=== PATIENT | male | born 1965 | race Caucasian/White ===

== ENCOUNTER 2018-01-09 13:05 | Emergency (ER) | payer OTHER ==
--- NOTE | 2018-01-09 13:14 | EDPHY ---
H & P Stated Complaint: Right flank pain Time Seen by Provider: 01/09/18 13:14 HPI/ROS: CHIEF COMPLAINT: Right flank pain HISTORY OF PRESENT ILLNESS: The patient presents the emergency department after he developed acute right flank pain earlier today. The patient does have a prior history of kidney stone in the symptoms are reminiscent of that episode. That kidney stone passed spontaneously after 3 days. The patient denies significant past medical history. He denies any gross hematuria, fever, dysuria or other acute medical complaints. He describes a colicky pain which is moderate in nature. REVIEW OF SYSTEMS: A comprehensive 10 point review of systems is otherwise negative aside from elements mentioned in the history of present illness. Source: Patient Exam Limitations: No limitations - Personal History Current Tetanus Diphtheria and Acellular Pertussis (TDAP): Yes - Medical/Surgical History Hx Asthma: No Hx Chronic Respiratory Disease: No Hx Diabetes: No Hx Cardiac Disease: No Hx Renal Disease: No Hx Cirrhosis: No Hx Alcoholism: No Hx HIV/AIDS: No Hx Splenectomy or Spleen Trauma: No Other PMH: Kidney stone, allergies, L Elbow Fx with repair, heart murmur - Social History Smoking Status: Never smoked - Physical Exam Exam: General Appearance: Alert, mild discomfort Eyes: Pupils equal and round no pallor or injection ENT, Mouth: Mucous membranes moist Respiratory: There are no retractions, lungs are clear to auscultation Cardiovascular: Regular rate and rhythm Gastrointestinal: Abdomen is soft and nontender, no masses, bowel sounds normal Back: Right CVA tenderness to palpation Neurological: 5/5 strength noted all 4 extremities Skin: Warm and dry, no rashes Musculoskeletal: Neck is supple nontender Extremities: Brisk pulses all 4 extremities Constitutional: Initial Vital Signs Temperature (C) 36.8 C 01/09/18 13:07 Heart Rate 81 01/09/18 13:07 Respiratory Rate 18 01/09/18 13:07 Blood Pressure 151/101 H 01/09/18 13:07 O2 Sat (%) 94 01/09/18 13:07 O2 Delivery Mode Room Air Allergies/Adverse Reactions: No Known Allergies Allergy (Unverified 02/08/16 18:45) Home Medications: Medication Instructions Recorded NK [No Known Home Meds] 01/09/18 Medical Decision Making ED Course/Re-evaluation: The patient presents to the ED with colicky right flank pain. The patient reports it feels like a mild episode of his prior ureterolithiasis. Patient had an IV established. He received Toradol. Urinalysis demonstrated no evidence of hematuria. The patient was taken for CT scan of the abdomen pelvis does demonstrate nephrolithiasis without ureterolithiasis. The patient does have mild constipation. No additional abnormalities are noted. I reexamined the patient at 2:40 p.m. He is now pain-free. It is certainly possible he passed a small stone which was not radiographically apparent. None the less the patient would like to be discharged. He will take Advil for pain. He is not interested narcotic medications. Differential Diagnosis: Differential diagnosis considered includes ureterolithiasis, pyelonephritis, myofascial strain, abdominal aortic aneurysm - Data Points Laboratory Results: Laboratory Results 01/09/18 13:17 01/09/18 01/09/18 01/09/18 13:26 13:25 13:17 WBC 7.51 10^3/uL 10^3/uL (3.80-9.50) RBC 5.33 10^6/uL 10^6/uL (4.40-6.38) Hgb 17.2 g/dL g/dL (13.7-17.5) POC Hgb 17.7 gm/dL H gm/dL (13.7-17.5) Hct 50.3 % % (40.0-51.0) POC Hct 52 % H % (40-51) MCV 94.4 fL fL (81.5-99.8) MCH 32.3 pg pg (27.9-34.1) MCHC 34.2 g/dL g/dL (32.4-36.7) RDW 12.1 % % (11.5-15.2) Plt Count 238 10^3/uL 10^3/uL (150-400) MPV 11.3 fL fL (8.7-11.7) Neut % (Auto) 52.2 % % (39.3-74.2) Lymph % (Auto) 39.4 % % (15.0-45.0) [place] % (Auto) 5.2 % % (4.5-13.0) Eos % (Auto) 2.4 % % (0.6-7.6) Baso % (Auto) 0.5 % % (0.3-1.7) Nucleat RBC Rel Count 0.0 % % (0.0-0.2) Absolute Neuts (auto) 3.92 10^3/uL 10^3/uL (1.70-6.50) Absolute Lymphs (auto) 2.96 10^3/uL 10^3/uL (1.00-3.00) Absolute Monos (auto) 0.39 10^3/uL 10^3/uL (0.30-0.80) Absolute Eos (auto) 0.18 10^3/uL 10^3/uL (0.03-0.40) Absolute Basos (auto) 0.04 10^3/uL 10^3/uL (0.02-0.10) Absolute Nucleated RBC 0.00 10^3/uL 10^3/uL (0-0.01) Immature Gran % 0.3 % % (0.0-1.1) Immature Gran # 0.02 10^3/uL 10^3/uL (0.00-0.10) POC Sodium 142 mEq/L mEq/L (135-145) POC Potassium 4.2 mEq/L mEq/L (3.3-5.0) POC Chloride 104 mEq/L mEq/L (97-110) POC BUN 19 mg/dL mg/dL (7-23) POC Creatinine 1.0 mg/dL mg/dL (0.7-1.3) POC Glucose 132 mg/dL H mg/dL (70-100) Urine Color YELLOW Urine Appearance CLEAR Urine pH 5.0 (5.0-7.5) Ur Specific [place] 1.018 (1.002-1.030) Urine Protein NEGATIVE (NEGATIVE) Urine Ketones NEGATIVE (NEGATIVE) Urine Blood NEGATIVE (NEGATIVE) Urine Nitrate NEGATIVE (NEGATIVE) Urine Bilirubin NEGATIVE (NEGATIVE) Urine Urobilinogen NEGATIVE EU EU (0.2-1.0) Ur Leukocyte Esterase NEGATIVE (NEGATIVE) Urine Glucose NEGATIVE (NEGATIVE) Medications Given: Discontinued Medications Sodium Chloride (Ns) 1,000 mls @ 0 mls/hr IV EDNOW ONE; Wide Open PRN Reason: Protocol Stop: 01/09/18 13:17 Last Admin: 01/09/18 13:25 Dose: 1,000 mls Ketorolac Tromethamine (Toradol) 15 mg IVP EDNOW ONE Stop: 01/09/18 13:43 Last Admin: 01/09/18 13:48 Dose: 15 mg Tamsulosin HCl (Flomax) 0.4 mg PO EDNOW ONE Stop: 01/09/18 13:44 Last Admin: 01/09/18 13:49 Dose: 0.4 mg Point of Care Test Results: Chemistry 01/09/18 13:26 POC Sodium 142 mEq/L mEq/L (135-145) POC Potassium 4.2 mEq/L mEq/L (3.3-5.0) POC Chloride 104 mEq/L mEq/L (97-110) POC BUN 19 mg/dL mg/dL (7-23) POC Creatinine 1.0 mg/dL mg/dL (0.7-1.3) POC Glucose 132 mg/dL H mg/dL (70-100) ISTAT H&H 01/09/18 13:26 POC Hgb 17.7 gm/dL H gm/dL (13.7-17.5) POC Hct 52 % H % (40-51) Departure - Departure Disposition: Home, Routine, Self-Care Clinical Impression: Right flank pain Condition: Good Instructions: Renal Colic (ED) Additional Instructions: 1. Take Ibuprofen or Motrin 600 mg by mouth three times a day. 2. I believe that you likely passed a small stone which was not seen on the CT scan. Please return to the ED for markedly worsening symptoms or other concerns. Referrals: NONE *PRIMARY CARE P,. [Primary Care Provider] - As per Instructions
[2018-01-09] MEDS ORDERED: NS 1,000 ML IV ONE (13:16)
[2018-01-09 13:30] LABS: PLATELET COUNT 238 10^3/uL (150-400)
[2018-01-09] MEDS ORDERED: KETOROLAC 15 MG/1 ML SDV IVP ONE (13:42)
[2018-01-09] MEDS ORDERED: TAMSULOSIN HCL 0.4 MG CAP PO ONE (13:43)
[2018-01-09 14:56] VITALS: BP 130/81
== END 2018-01-09 14:58 | disposition home or self-care (01) ==
DX: R10.9 Unspecified abdominal pain (principal); E86.9 Volume depletion, unspecified; N20.0 Calculus of kidney; K59.00 Constipation, unspecified
CPT/HCPCS: 82435-PO; 82565-PO; 82947-PO; 84132-PO; 84295-PO; 84520-PO; 85014-PO; 96374; J1885